=== PATIENT | male | born 1965 | race Caucasian/White ===

== ENCOUNTER 2017-07-16 07:46 | Outpatient (CLI) | payer OTHER ==
[2017-07-16 10:14] LABS: #Eosinphils 0.1 thou/uL (0.0-0.7); #Lymphocytes 1.4 thou/uL (1.20-3.40); #Monocytes 0.8 thou/uL (0.11-0.59); #Neutrophils 4.8 thou/uL (1.40-6.50); %Basophils 0.5 % (0.0-1.0); %Eosinophils 1.3 % (0.0-10.0); %Lymphocytes 19.4 % (21.0-51.0); %Monocytes 11.5 % (0.0-10.0); %Neutrophils 67.2 % (42.0-75.0); Hemoglobin 16.5 g/dL (14.0-18.0); Mean Corpuscular HGB CONC 35.2 g/dL (32.0-36.0); Mean Corpuscular Hemoglobin 32.9 pg (27.0-31.0); Mean Corpuscular Volume 93.5 fl (80.0-94.0); Mean Platelet Volume 8.2 fL (7.4-10.4); Platelet Count 183 thou/uL (130-400); RBC Distribution Width 12.2 % (11.5-14.5); Red Blood Cell (RBC) Count 5.01 mill/uL (4.70-6.10); White Blood Cell (WBC) Count 7.1 thou/uL (4.8-10.8)
--- NOTE | 2017-07-16 10:21 | RAD ---
CHEST TWO VIEWS: History: Pre op. Comparison: FINDINGS: Cardiac silhouette and pulmonary vasculature are unremarkable. Mediastinum is midline. No confluent a irspace consolidation, pneumothorax, or pleural fluid. IMPRESSION: No active cardiopulmonary abnormalities are demonstrated. POS: TPC
[2017-07-16 10:32] LABS: Anion Gap 11 mmol/L (10-20); BUN (Urea Nitrogen) 16 mg/dL (8.4-25.7); Calc. Creatinine Clearance 0 mL/min (70-130); Calcium 9.3 mg/dL (7.8-10.44); Carbon Dioxide 27 mmol/L (22-29); Chloride 103 mmol/L (98-107); Estimated GFR-MDRD Greater than 90; Glucose 93 mg/dL (70-105); Sodium 137 mmol/L (136-145)
[2017-07-16 10:38] LABS: PTT 31.8 SEC (22.9-36.1); Prothrombin Time 13.2 SEC (12.0-14.7)
[2017-07-16 11:11] LABS: Bilirubin Negative (Negative); Blood, Urine Negative (Negative); Clarity CLEAR (Clear); Glucose, Urine (Dipstick) Negative (Negative); Leukocyte Negative (Negative); Nitrite Negative (Negative); Protein, Urine (Dipstick) Negative (Neg-Trace)
[2017-07-16 11:16] LABS: Bacteria/HPF None Seen HPF (None Seen); Hyaline Casts/LPF 0-3 HYALINE CAST LPF (0-3 Hyaline); Squamous Epithelial None Seen HPF (0-3); WBC/HPF None Seen HPF (0-3)
--- NOTE | 2017-07-17 20:19 | EKG ---
Test Reason : Blood Pressure : / mmHG Vent. Rate : 049 BPM Atrial Rate : 049 BPM P-R Int : 182 ms QRS Dur : 098 ms QT Int : 460 ms P-R-T Axes : 044 031 039 degrees QTc Int : 415 ms Marked sinus bradycardia Cannot rule out Anterior infarct , age undetermined Abnormal ECG When compared with ECG of 06-NOV-2013 09:01, No significant change was found Confirmed by THAD WILEY (2) on 07/17/2017 8:18:59 PM Referred By: KAREN Confirmed By:THAD WILEY
== END 2017-07-16 07:47 | disposition home or self-care (01) ==
LOC: LABBT 07:46
PROVIDERS: ATTEND Orthopaedic Surgery
DX: Z01.818 Encounter for other preprocedural examination (principal); M16.12 Unilateral primary osteoarthritis, left hip
CPT/HCPCS: 71046; 80048; 81001; 85025; 85610; 85730; 86850; 86900; 86901; 87081; 93005; 93010

== ENCOUNTER 2017-07-16 08:00 | Inpatient (IN) | payer OTHER ==
[2017-07-16 08:23] VITALS: BMI 40.1
[2017-07-23] MEDS ORDERED: Fentanyl 100 MCG/2 ML VIAL ONE (06:19)
[2017-07-23] MEDS ORDERED: Midazolam HCl 2 mg/2 ml Vial ONE (06:19)
[2017-07-23] MEDS ORDERED: HYDROcodone/Acetaminophen 10/325 mg Tablet PO PRN ×4 (06:53→07:07)
[2017-07-23] MEDS ORDERED: traMADol HCl 50 MG TAB PO PRN ×3 (06:53→07:15)
[2017-07-23] MEDS ORDERED: Zolpidem Tartrate 5 MG TAB PO PRN ×2 (06:53→07:15)
[2017-07-23] MEDS ORDERED: Acetaminophen 325 MG TAB PO PRN (06:53)
[2017-07-23] MEDS ORDERED: Promethazine HCl 25 MG/ML VIAL IM PRN ×2 (06:53→07:15)
[2017-07-23] MEDS ORDERED: diphenhydrAMINE 25 MG CAP PO PRN ×2 (06:53→07:15)
[2017-07-23] MEDS ORDERED: Fentanyl 100 MCG/2 ML VIAL SLOW IVP PRN ×2 (06:53)
[2017-07-23] MEDS ORDERED: Ondansetron HCl/PF 4 MG/2 ML Vial IVP PRN ×2 (06:53→07:15)
[2017-07-23] MEDS ORDERED: Phenylephrine HCL 10 MG/ML VIAL ONE (06:55)
[2017-07-23] MEDS ORDERED: Bupivacaine 0.25% HCL 30 ML VIAL ONE (06:55)
[2017-07-23] MEDS ORDERED: Lidocaine 2% Jelly 5 ML TUBE ONE (06:58)
[2017-07-23] MEDS ORDERED: Tranexamic Acid 1,000 MG in Sodium Chloride 0.9% 100 ML IVPB SCH (07:00)
[2017-07-23] MEDS ORDERED: diphenhydrAMINE 50 MG/ML VIAL IVP PRN (07:15)
[2017-07-23] MEDS ORDERED: Bupivacaine 0.25% 10 ML VIAL EPIDURAL PRN (07:15)
[2017-07-23] MEDS ORDERED: Naloxone HCl 0.4 mg/ml Vial IVP PRN (07:15)
[2017-07-23] MEDS ORDERED: fentaNYL Citrate/PF 1,250 MCG, Bupivacaine 25 ML in Sodium Chloride 0.9% 250 ML 200 ML EPIDURAL SCH (07:15)
[2017-07-23] MEDS ORDERED: Promethazine HCl 25 MG SUPP PR PRN (07:15)
[2017-07-23] MEDS ORDERED: diphenhydrAMINE 50 MG/ML VIAL IM PRN (07:15)
[2017-07-23] MEDS ORDERED: Naloxone HCl 0.4 mg/ml Vial IV PRN (07:15)
[2017-07-23] MEDS ORDERED: Hydrocerin (Eucerin) Cream 120 gm Jar TOP PRN (07:15)
[2017-07-23] MEDS ORDERED: Succinylcholine Chloride 20 MG/ML 10 ml SYRINGE FS ONE (07:33)
[2017-07-23] MEDS ORDERED: PROPOFOL 200 MG/20 ML VIAL ONE (07:33)
[2017-07-23] MEDS ORDERED: Ondansetron HCl/PF 4 MG/2 ML Vial ONE ×2 (07:33→07:37)
[2017-07-23] MEDS ORDERED: ePHEDrine/0.9% NaCl/PF SYRINGE 50 mg/10 ml ONE (07:33)
[2017-07-23] MEDS ORDERED: Glycopyrrolate 0.2 MG/ML 5 ML SYRINGE ONE (07:33)
[2017-07-23] MEDS ORDERED: Dexamethasone 20 MG/5 ML VIAL ONE (07:33)
[2017-07-23] MEDS ORDERED: Non-Formulary Item 1 EACH (Multivit-Min/Fa/Lycopen/Lutein [Centrum Silver Tablet] 1 TAB) PO SCH (09:00)
[2017-07-23] MEDS: Sodium Chloride 0.9% 1,000 ML IV SCH ×2 (10:36→17:43)
[2017-07-23] MEDS: Ferrous Gluconate 324 MG TAB PO SCH ×2 (10:37→20:58)
[2017-07-23] MEDS: Senokot S 8.6-50 MG TAB PO SCH ×2 (10:38→20:58)
[2017-07-23] MEDS: Multivitamin W/ Minerals 1 TAB PO SCH (10:38)
--- NOTE | 2017-07-23 10:59 | RAD ---
3 VIEWS LEFT HIP: Date: 07/23/17 COMPARISON: None. HISTORY: 52-year-old male status post total hip arthroplasty. FINDINGS: There is a left total hip arthroplasty in place. There is anterior soft tissue swelling and subcutane ous gas consistent with recent surgery. The acetabular and the femoral component appear well seated w ith no evidence for hardware failure, acute fracture, or dislocation. IMPRESSION: Status post total hip arthroplasty on the left. POS: ESTELA
[2017-07-23] MEDS: Cyanocobalamin (Vitamin B-12) 1,000 MCG TAB PO SCH (12:13)
[2017-07-23] MEDS: Ketorolac Tromethamine 30 MG/ML VIAL IVP SCH ×2 (12:13→18:32)
[2017-07-23] MEDS: Hydrochlorothiazide 25 MG TAB PO SCH (12:13)
--- NOTE | 2017-07-23 12:54 | OP ---
PREOPERATIVE DIAGNOSIS: Degenerative joint disease, left hip. POSTOPERATIVE DIAGNOSIS: Degenerative joint disease, left hip. TITLE OF PROCEDURE: Left total hip arthroplasty using an Accolade 0.5 stem, Tritanium 58 mm cup and ceramic head standard 36 and X3 polyethylene liner. PROCEDURE IN DETAIL: After informed consent was obtained in the preoperative holding area, the patie nt was taken to the operative suite where general anesthesia was induced. The patient was then posit ioned in the lateral decubitus position. The hip was then prepped and draped in usual sterile fashio n. The patient received preoperative antibiotics. Prior to incision, time-out was called and all me mbers of the surgical team agreed upon site, surgeon, and patient. After this, a longitudinal incisi on was made directly over the trochanter, noted by palpation extending 2 fingerbreadths above and bel ow the trochanter. The deeper subcutaneous layer was undermined with Bovie electrocautery. The ilio tibial band was encountered and incised sharply and the plane below this was developed bluntly. [facility] to hold this opened. The lateral aspect of the trochanter and the abduct or muscles were encountered and then reflected anteriorly off the trochanter using Bovie electrocaute ry. Once this was completed, the anterior capsule was then encountered and identified and copious ca psulotomy was carried out, exposing the femoral neck and head. Dislocation maneuver was then performe d and an in situ provisional neck cut was then made using the oscillating saw. Attention was then tu rned to acetabular preparation and sequential reaming was carried out up to the appropriate diameter and a trial was then malleted into place with good firm resistance and no pullout. The permanent juan manuel tabular shell was then malleted squarely into place, as was the appropriate liner. Once completed, t he wound was copiously irrigated and attention was then turned to femoral preparation. Flexion and ex ternal rotation was performed of the exposed thigh and femoral elevators were then placed at the prox imal aspect of the wound. Canal finder was used to establish the length of the canal and sequential reaming was carried out, followed by broaching. Once the appropriate stability was established with the trial broaches with both flexion, extension and rotational stability, we did trial with neutral a nd 2 mm offset incremental necks. Once the appropriate size was decided upon, with good stability no ravi with flexion, extension, internal and external rotation and shuck being negative, we removed the femoral trial broach and malletted into place the permanent prosthesis with good firm fit, which was also stable to rotation. Again, the hip felt very stable to flexion, extension, internal and externa l rotation. Leg lengths appeared near anatomic clinically and we were quite happy with prosthesis pl acement. Copious irrigation was then carried out through the entirety of the wound. Primary closure of the abductors was accomplished with interrupted #2 Vicryl adjvpr-gl-laewm stitches and the IT ban d was then closed with interrupted #2 Vicryl, oversewn with a #2 running barbed Quill stitch. Subcut aneous fascia was closed with running barbed Quill stitch and a subcuticular Monocryl barbed Quill st itch was used for skin closure and augmented with skin cement. A sterile dressing was applied. The p rocedure was terminated without any complication. All counts were correct. The patient was awakened in the operative suite and taken to the recovery room in stable condition.
[2017-07-23] MEDS ORDERED: CEFAZOLIN/Water 2 GM/20 ML SYRINGE SLOW IVP SCH (14:00)
[2017-07-23] MEDS ORDERED: Ketorolac Tromethamine 30 MG/ML VIAL IVP SCH (14:00)
[2017-07-23] MEDS: CEFAZOLIN/Water 2 GM/20 ML SYRINGE SLOW IVP SCH (20:28)
[2017-07-24] MEDS: Ketorolac Tromethamine 30 MG/ML VIAL IVP SCH ×3 (00:06→11:30)
[2017-07-24] MEDS: CEFAZOLIN/Water 2 GM/20 ML SYRINGE SLOW IVP SCH (00:08)
[2017-07-24] MEDS: Sodium Chloride 0.9% 1,000 ML IV SCH (02:36)
[2017-07-24 06:05] LABS: Hemoglobin 13.4 g/dL (14.0-18.0); Mean Corpuscular HGB CONC 34.4 g/dL (32.0-36.0); Mean Corpuscular Hemoglobin 32.5 pg (27.0-31.0); Mean Corpuscular Volume 94.4 fl (80.0-94.0); Mean Platelet Volume 8.4 fL (7.4-10.4); Platelet Count 176 thou/uL (130-400); RBC Distribution Width 11.8 % (11.5-14.5); Red Blood Cell (RBC) Count 4.12 mill/uL (4.70-6.10); White Blood Cell (WBC) Count 14.6 thou/uL (4.8-10.8)
[2017-07-24] MEDS: Multivitamin W/ Minerals 1 TAB PO SCH (09:06)
[2017-07-24] MEDS: Senokot S 8.6-50 MG TAB PO SCH (09:06)
[2017-07-24] MEDS: Ferrous Gluconate 324 MG TAB PO SCH (09:06)
[2017-07-24] MEDS: Cyanocobalamin (Vitamin B-12) 1,000 MCG TAB PO SCH (09:06)
[2017-07-24] MEDS: Hydrochlorothiazide 25 MG TAB PO SCH (09:07)
--- NOTE | 2017-07-24 10:39 | PDOC.PN ---
- Subjective Encounter Start Date: 07/24/17 Encounter Start Time: 09:10 no events overnight, denies F/C, no n/V/D/c, no CP, no SOB. hasnt walked yet, epidural still in but being weaned off. about to get up with PT. All systems reviewed and neg x as per HPI - Objective MAR Reviewed: Yes Vital Signs & Weight: Vital Signs (12 hours) Temp Pulse Resp BP Pulse Ox 07/24/17 07:15 98.1 F 71 18 119/68 97 07/24/17 04:00 98 F 66 16 107/66 95 07/24/17 00:00 98.3 F 56 L 16 122/68 94 L Weight Weight 330 lb I&O: 07/23/17 07/24/17 07/25/17 06:59 06:59 06:59 Intake Total 2422 2256 Output Total 3400 900 Balance -978 1356 Result Diagrams: 07/24/17 04:48 Phys Exam - Physical Examination Constitutional: NAD HEENT: PERRLA, moist MMs, sclera anicteric, oral pharynx no lesions Neck: no nodes, no JVD, supple, full ROM Respiratory: no wheezing, no rales, no rhonchi, clear to auscultation bilateral Cardiovascular: RRR, no significant murmur, no rub Gastrointestinal: soft, non-tender, no distention, positive bowel sounds Musculoskeletal: pulses present, edema present Neurological: non-focal, normal sensation, moves all 4 limbs Lymphatic: no nodes Psychiatric: normal affect, A&O x 3 Skin: no rash, normal turgor, cap refill <2 seconds Dx/Plan (1) Essential (primary) hypertension Code(s): I10 - ESSENTIAL (PRIMARY) HYPERTENSION Status: Chronic (2) Obesity Code(s): E66.9 - OBESITY, UNSPECIFIED Status: Chronic Qualifiers: Obesity type: due to excess calories Obesity classification: adult class 3 (BMI >= 40) Serious obesity comorbidity presence: without serious comorbidity Body mass index: BMI 40.0-44.9 Qualified Code(s): E66.01 - Morbid (severe) obesity due to excess calories; Z68.41 - Body mass index (BMI) 40.0-44.9, adult ; Z68.41 - Body mass index (BMI) 40.0-44.9, adult; Z68.41 - Body mass index (BMI ) 40.0-44.9, adult; Z68.41 - Body mass index (BMI) 40.0-44.9, adult Comment: s/p lap gastric sleeve and 130# weight loss in past (3) DJD (degenerative joint disease) Code(s): M19.90 - UNSPECIFIED OSTEOARTHRITIS, UNSPECIFIED SITE Status: Chronic Qualifiers: Osteoarthritis location: multiple joints Osteoarthritis type: primary Qualified Code(s): M15.0 - Primary generalized (osteo)arthritis (4) History of bariatric surgery Code(s): Z98.84 - BARIATRIC SURGERY STATUS Status: Chronic (5) History of total left hip arthroplasty Code(s): Z96.642 - PRESENCE OF LEFT ARTIFICIAL HIP JOINT Status: Acute Comment: POD 1, per ortho - Plan cont current plan of care, PT/OT, social studies teacher, out of bed/ambulate * .
--- NOTE | 2017-07-24 10:55 | CON ---
DATE OF CONSULTATION: 07/23/2017 TIME OF SERVICE: 14:10 INITIAL INPATIENT CONSULT NOTE REQUESTING PHYSICIAN: Dr. Miguelito Heller. REASON FOR CONSULTATION: Medical management status post left hip replacement. HISTORY OF PRESENT ILLNESS: Mr. Lee is a pleasant 52-year-old gentleman with history of obesity, status post laparoscopic gastric sleeve surgery, ongoing tobacco abuse, hypertension, and degenerati ve joint disease who presents to the hospital today as a transfer to the floor postop day 0 from left total hip arthroplasty. No noted intraoperative complications. We have been consulted postoperativ e for medical management. The patient does use snuff daily about 1 can per day. This is ongoing and has no intention of quitti ng. Does have a history of severe obesity and had a laparoscopic gastric sleeve procedure by Dr. Byron christianson. Since that time, he has lost about 130 pounds. This enabled him to have the surgery. He has a history of hypertension on medications and says fairly well controlled and degenerative joint disease as above. Postop, he is doing well. Once we get the catheter out, he is ready to get up and walk. Still has a n epidural in place. No fevers or chills, no nausea, vomiting, no diarrhea or constipation. No coug h, sputum production, chest pain or shortness of breath. PAST MEDICAL HISTORY: 1. Ongoing tobacco abuse. 2. Severe obesity. 3. Hypertension. 4. Degenerative joint disease. PAST SURGICAL HISTORY: Includes, 1. Laparoscopic gastric sleeve procedure by Dr. Avendaño. 2. Umbilical hernia repair. 3. Right knee arthroscopy x3. 4. Right rotator cuff repair. 5. Right foot surgery remotely. 6. Tonsillectomy remotely. HOME MEDICATIONS: 1. Aspirin 81 mg daily with vitamin D3 6000 units p.o. q.a.m. 2. Vitamin B12 1000 mcg q.a.m. 3. HCTZ 25 mg p.o. daily. 4. Toprol-XL 50 mg p.o. q.a.m. 5. Multivitamin daily. 6. Tramadol as needed. ALLERGIES: NKDA. FAMILY HISTORY: Significant for diabetes and hypertension. Negative for premature coronary artery d isease. SOCIAL HISTORY: Significant for snuff usage. Uses about 1 can per day. No history of IV drug use. He is , monogamous. His accompanies him. REVIEW OF SYSTEMS: All systems reviewed and negative except as stated as per HPI. PHYSICAL EXAMINATION: VITAL SIGNS: Temperature 97.8, pulse 69, blood pressure 135/74, respiratory rate 16, satting 98% on room air. GENERAL: He is awake, he is alert, he is oriented x3, well-developed, well-nourished, obese white medardo kenny, appears to be in no distress. HEENT: Normocephalic, atraumatic. His pupils are equal, round, reactive to light bilaterally. Muco us membranes moist. There are no visible lesions. No thrush. NECK: Supple. No lymphadenopathy, no JVD, no thyromegaly. No carotid upstroke. I do not appreciat e bruits. LUNGS: Clear. No wheezes, no rales or rhonchi. Good air movement. Symmetrical chest excursion. CARDIOVASCULAR: Normal S1 and S2. No S3 or S4. No audible murmurs. ABDOMEN: Soft. It is nontender and nondistended. No masses, no organomegaly. He has got no reboun d, rigidity or guarding. EXTREMITIES: No signs of clubbing and trace edema to the right ankle level. His left hip dressing i s clean, dry, and intact. There is no strike through. SKIN: Otherwise warm, moist and well well-perfused. No other rashes or lesions. MUSCULOSKELETAL: Normal to inspection. Other than the left hip, other joints appear intact. There is no inflammation. No palpable effusions. NEUROLOGIC: Cranial nerves II-XII are grossly intact. He has no focal neurologic deficits, 5/5 stre ngth, and normal speech pattern. PREOPERATIVE LABORATORY DATA: Sodium 137, potassium 4.0, chloride 103, bicarb 27, BUN 10, creatinine 0.75, glucose 93, and calcium 9.3. Liver function completely normal limits. CBC showed a white cou nt of 7.1, hemoglobin is 16.5, hematocrit of 46.9, platelet count was 183,000. The urinalysis was ne gative and INR was 1.0. These were drawn on 07/16/2017. ASSESSMENT AND PLAN: 1. Hypertension. 2. Severe obesity, status post laparoscopic gastric sleeve procedure. 3. Ongoing tobacco abuse. 4. Degenerative joint disease. 5. Status post left total hip arthroplasty. His home medications have been resumed. We will continue to monitor his blood pressure while here. He does not have history of diabetes or lung disease. Patient anticipates going home tomorrow. We w ill continue to follow with you while he is in the hospital. Thank you for this consultation.
[2017-07-24 13:40] VITALS: BP 136/78; TEMP 97.6
== END 2017-07-24 16:45 | disposition home or self-care (01) | DRG 470 ==
LOC: SURG A 07-23 05:44 → SJJU 07-23 09:57
PROVIDERS: ADMIT Orthopaedic Surgery; ATTEND Orthopaedic Surgery
PROC: 0SRB04Z Replacement of Left Hip Joint with Ceramic on Polyethylene Synthetic Substitute, Open Approach (ICD-10-PCS; principal; 2017-07-23)
DX: M16.12 Unilateral primary osteoarthritis, left hip (principal); Z68.41 Body mass index [BMI] 40.0-44.9, adult; E66.9 Obesity, unspecified; I10 Essential (primary) hypertension; F17.220 Nicotine dependence, chewing tobacco, uncomplicated; Z98.84 Bariatric surgery status; F17.210 Nicotine dependence, cigarettes, uncomplicated; Z79.82 Long term (current) use of aspirin
CPT/HCPCS: 36415; 85027; 96374; G8978-GP-CK; G8979-GP-CJ; G8987-GO-CJ; G8988-GO-CJ; G8989-GO-CJ; J1100; J1885; J2250; J2370; J2405; J2704; J3010; J3370; J3490; J7050; S0020

== ENCOUNTER 2018-01-22 11:47 | Inpatient (IN) | payer OTHER ==
[2018-01-22 12:46] LABS: #Monocytes 1.1 thou/uL (0.11-0.59); #Neutrophils 6.7 thou/uL (1.40-6.50); %Basophils 0.5 % (0.0-1.0); %Eosinophils 0.5 % (0.0-10.0); %Monocytes 12.2 % (0.0-10.0); %Neutrophils 75.9 % (42.0-75.0); Hemoglobin 16.8 g/dL (14.0-18.0); Mean Corpuscular HGB CONC 33.2 g/dL (32.0-36.0); Mean Corpuscular Hemoglobin 31.3 pg (27.0-31.0); Mean Corpuscular Volume 94.3 fL (78.0-98.0); Mean Platelet Volume 8.6 fL (7.4-10.4); Platelet Count 198 thou/uL (130-400); RBC Distribution Width 12.9 % (11.5-14.5); Red Blood Cell (RBC) Count 5.38 mill/uL (4.70-6.10); White Blood Cell (WBC) Count 8.8 thou/uL (4.8-10.8)
[2018-01-22 13:16] LABS: CKMB 3.7 ng/mL (0-6.6); Troponin I Less than 0.010 ng/mL (< 0.028)
[2018-01-22] MEDS ORDERED: Morphine 2 MG/ML SYRINGE ONE (13:16)
[2018-01-22 13:21] LABS: ALT (SGPT) 235 U/L (8-55); AST (SGOT) 257 U/L (5-34); Albumin 4.4 g/dL (3.5-5.0); Alkaline Phosphatase 101 U/L (40-150); Anion Gap 13 mmol/L (10-20); BUN (Urea Nitrogen) 15 mg/dL (8.4-25.7); Bilirubin, Total 4.6 mg/dL (0.2-1.2); CK (CPK) 209 U/L (30-200); Calc. Creatinine Clearance 0 mL/min (70-130); Calcium 9.4 mg/dL (7.8-10.44); Carbon Dioxide 27 mmol/L (22-29); Chloride 102 mmol/L (98-107); Estimated GFR-MDRD Greater than 90; Globulin 3.2 g/dL (2.4-3.5); Glucose 91 mg/dL (70-105); Potassium 3.8 mmol/L (3.5-5.1); Protein, Total 7.6 g/dL (6.0-8.3); Sodium 138 mmol/L (136-145)
--- NOTE | 2018-01-22 13:36 | RAD ---
FRONTAL VIEW CHEST: INDICATIONS: Chest pain. COMPARISON: 07/16/2017 FINDINGS: The cardiomediastinal silhouette is accentuated by the portable technique, grossly stable. There is no lobar consolidation or effusion. No free air. No discrete pneumothorax. IMPRESSION: No focal consolidation. POS: JULIANK
[2018-01-22 14:05] LABS: Lipase Greater than 16000 U/L (8-78)
--- NOTE | 2018-01-22 14:20 | ULT ---
GALLBLADDER ULTRASOUND: INDICATIONS: Right upper quadrant pain. FINDINGS: There is limited acoustic penetration of the liver, which decreases sensitivity. The imaged portion of the liver revealed increased echogenicity, that can be seen in the setting of hepatic steatosis. Multiple echogenic foci of the gallbladder, which layer and shadow, are consistent with cholelithiasi s. No discernible gallbladder wall thickening. The imaged common duct is 4 mm in diameter. No asci charan is seen. IMPRESSION: 1. Echogenic liver with decreased acoustic penetration, which limits sensitivity. Correlate with li chiara function enzymes, as necessary, to evaluate for hepatic steatosis or hepatocellular disease. 2. Cholelithiasis. No discrete evidence of acute cholecystitis. POS: PAULO
[2018-01-22] MEDS ORDERED: Morphine 4 MG/ML VIAL SLOW IVP PRN ×2 (15:40→15:56)
[2018-01-22] MEDS ORDERED: Morphine 2 MG/ML SYRINGE SLOW IVP PRN (15:56)
[2018-01-22] MEDS ORDERED: Ondansetron PF 4 MG/2 ML Vial IVP PRN (15:56)
[2018-01-22] MEDS ORDERED: hydrALAZINE 20 MG/ML VIAL SLOW IVP PRN (15:56)
[2018-01-22 16:11] VITALS: BMI 37.9
[2018-01-22] MEDS: Sodium Chloride 0.9% 1,000 ML IV SCH ×4 (17:26→22:41)
[2018-01-22] MEDS: Nicotine 14 MG PATCH TD SCH ×2 (17:38→21:19)
--- NOTE | 2018-01-22 19:41 | HP ---
PRIMARY CARE PHYSICIAN: Dr. Cristiano Butts. CHIEF COMPLAINT: Chest and epigastric pain. HISTORY OF PRESENT ILLNESS: Mr. Lee is a very pleasant 52-year-old gentleman that has a history of hypertension. He was in his usual state of health until last night. He and his had gone to the local [employer] and had eaten at [employer] and he felt fine immediately afterwards, but by the time he got home, he began having a knot-like sensation in his epigastrium. He also says that his r ight shoulder felt numb. He thought he might be having a heart attack. He says that he tried sleepi ng but was very uncomfortable and expressed that he tried lying on the stomach. There was a lot of p ressure there, It seemed to get a little bit better, but he then had some chills. The pain then star ravi radiating upwards into his chest. He did feel a bit nauseated. He also felt constipated, as if he have a bowel movement, it would get better. The pain also was moving around into his back. He sa id it was getting worse and worse and when he woke up in the morning, It was still there and it was b ecoming more severe. For this reason, he came to the ER for evaluation. He actually gone to Urgent Care and they did an abdominal ultrasound and discovered that he had stones in the gallbladder as wel l as an elevated lipase and was sent over to our facility for further evaluation. The patient says t hat he has never had anything like this happen to him before. He has had some problems with some mil d nausea after eating only on one occasion in the past, but it only lasted a few hours and it went aw ay. He denies any fevers, no hematemesis, no melena, or blood in the stools. He does admit to drink ing heavily, as this was close to the anniversary of his son's , but he says he stopped drinking about a week ago. Prior to that, he was drinking about a bottle of Manuel Beam a day. He does not hav e any feeling of shakiness or anxiousness now. He did have that few days ago. REVIEW OF SYSTEMS: All systems were reviewed and are negative except for that mentioned in the histo ry of present illness. PAST MEDICAL HISTORY: Significant for hypertension, obesity, degenerative joint disease, and tobacco abuse. PAST SURGICAL HISTORY: He had left total hip replacement; a laparoscopic gastric sleeve; three arthr oscopic knee surgeries, two on one knee and one on the other; right rotator cuff repair; right foot s urgery; and tonsillectomy. ALLERGIES: No known drug allergies. SOCIAL HISTORY: He is . He works in the business. He uses a can of snuff daily. He w as a heavy drinker but quit about 8 days ago. He would like to be a FULL CODE. FAMILY HISTORY: Significant for diabetes mellitus in his aunt and his mother and grandmother had hyp ertension. CURRENT MEDICATIONS: Include metoprolol 25 mg once daily, hydrochlorothiazide 12.5 mg daily, ibuprof en 200 mg 2 tabs once a day. PHYSICAL EXAMINATION: GENERAL: He is alert and oriented. He appears to be in no acute distress. He is well developed and well nourished. VITAL SIGNS: His blood pressure was 155/90, heart rate 62, respiratory rate of 18, temperature is 98 .5. HEENT: Pupils are equal, round, and reactive. Extraocular muscles are intact. His sclerae anicteri c. Throat: There is no erythema, no exudates. NECK: No adenopathy, no bruits. LUNGS: Clear to auscultation. There is no wheezing, no rales, no rhonchi. CARDIOVASCULAR: He has a normal S1, S2. There was no S3 or S4. No murmurs, clicks, no rubs. ABDOMEN: Obese, it is soft. He has got some epigastric to right upper quadrant tenderness . The li chiara span is slightly enlarged. There was no rebound, no guarding. Bowel sounds are present. EXTREMITIES: No edema, no calf tenderness, no joint crepitus or effusions, no warmth. Palpable dors jake pedis pulses. NEUROLOGIC: Muscle strength is 5/5 in both his upper and lower extremities. His cranial nerves are intact. SKIN AND INTEGUMENT: There is no skin changes, no rash. SIGNIFICANT LABORATORY AND X-RAY: His EKG by my reading is sinus bradycardia. The rate was 52. No ST wave changes on his chest x-ray, he has got some mild cardiomegaly, but no evidence of any infiltr ates or effusions also by my reading. Laboratory results, sodium is 138, potassium 3.8, chloride is 102, CO2 is 27, BUN of 15, creatinine 0.86, glucose is 91. Total bilirubin is 4.6, AST is 257, ALT i s 235, lipase is 16,000. Troponin is less than 0.101. The white blood cell count is 8.8, hemoglobin 16.8, hematocrit is 50.7, platelet count is 198. ASSESSMENT AND PLAN: This is a pleasant 52-year-old gentleman who presents with epigastric and abdom inal pain after eating. He has evidence of cholelithiasis also, an elevated lipase. He has gallston e pancreatitis. 1. For the acute pancreatitis due to cholelithiasis, he will be admitted. He will be placed on ignacio l rest, IV fluids, IV antiemetics and analgesics. We will monitor his electrolytes carefully as well as his glucose and we will also consult Gastroenterology, given the elevated total bilirubin, as he could possibly have a common duct stone as well. Surgery may need to be consulted depending on the G I evaluation for possible cholecystectomy. 2. Hypertension. He will be n.p.o. Therefore, we will treat his blood pressure either with IV p.r. n. medications or with transdermal agent such as Catapres or nitroglycerin. 3. Obesity. I discussed this with the patient that he should talk with his primary care physician t o discuss safe weight loss techniques. 4. Tobacco use. The danger of the smokeless tobacco were discussed and the need to abstain from thi s. He says he is going to need to master abstaining from alcohol first and then he plans to tackle t he tobacco use. 5. He will be placed on deep venous thrombosis and gastrointestinal prophylaxis.
[2018-01-22] MEDS: Famotidine/PF 20 mg/2ml Vial SLOW IVP SCH (21:13)
--- NOTE | 2018-01-22 22:57 | CON ---
DATE OF CONSULTATION: 01/22/2018 REASON FOR CONSULTATION: Pancreatitis and possible choledocholithiasis. CONSULTING PHYSICIAN: Geovanny Hernandez M.D. HISTORY OF PRESENT ILLNESS: The patient is a 52-year-old male with past medical history of hypertens ion and obesity, status post gastric sleeve surgery in 2013, presenting with complaints of abdominal pain. He states that he was in his usual state of health until approximately one day ago when he exp erienced acute onset of midepigastric abdominal pain characterized as a nodded/cramping type pain, no nradiating, constant and would reach a severity of 9/10. The pain was worse with bending over, lying down, laughing, and walking, better with sitting at the bedside. This pain was also associated with increased nausea, but no actual emesis as well as increased constipation, having approximately one s mall bowel movement over the last 24-48 hours. With worsening of his pain, it prompted him to seek [facility] development [facility] where they did an abdominal ultrasound and serologies show ing cholelithiasis as well as an elevated lipase of approximately 16,000 concerning for choledocholit hiasis. He was subsequently transferred to [facility] for further evaluation. Currently, he denies any vomiting, fevers, chills, hematemesis, melena, hematochezia, diarrhea, odynophagia or dysphagia. He states that he does take two medications at home, one of which is hydrochlorothiazide and other is metoprolol. He has not made any medication changes within the last 2-3 months; however, he does endorse a heavy drink alcohol or heavy alcohol use, drinking approximately one bottle of Manuel Beam daily, but discontinued this approximately 1 week ago. REVIEW OF SYSTEMS: A 10-category review of systems was obtained with all responses negative except f or the pertinent positives as listed in the HPI. PAST MEDICAL HISTORY: Hypertension, obesity, tobacco abuse. PAST SURGICAL HISTORY: Left total hip replacement, gastric sleeve surgery in 2013. Three arthroscop ic knee surgeries, right foot surgery, and tonsillectomy. OUTPATIENT MEDICATIONS: As per HPI. FAMILY HISTORY: Denies any GI malignancies. ALLERGIES: No known drug allergies. PHYSICAL EXAMINATION: VITAL SIGNS: Temperature 98.5, pulse 55, blood pressure 177/96, respiratory rate 18, satting 99% on room air. GENERAL: The patient was sitting at bedside in no acute distress. Alert and oriented x4. NECK: Supple. No JVD noted. No supraclavicular lymphadenopathy or cervical chain lymphadenopathy n oted. CARDIOVASCULAR: Regular rate and rhythm with no discernible murmurs, gallops or rubs. LUNGS: Clear to auscultation bilaterally with no discernible wheezes or rales. ABDOMEN: Hypoactive bowel sounds, soft, nontender, nondistended. EXTREMITIES: No cyanosis, clubbing or edema. LABORATORY DATA: CBC with a white blood cell count of 8.8, hemoglobin 16.8, hematocrit 50.7, glucose 198. Chemistry with a sodium of 138, potassium 3.8, chloride 102, CO2 27, BUN 15, creatinine 0.86, glucose 91, AST 257, ALT 235, alkaline phosphatase 101, total bilirubin 4.6, albumin 4.4, lipase grea ter than 16,000. IMAGING DATA: Right upper quadrant abdominal ultrasound obtained on 01/22/2018 showed multiple echog enic foci in the gallbladder with a common bile duct measuring 4 mm in size. No ascites and no evide nce of acute cholecystitis. ASSESSMENT AND PLAN: The patient is a 52-year-old male with past medical history of hypertension, ar thritis, and obesity, status post gastric sleeve surgery in 2013, presenting with midepigastric abdom inal pain and labs consistent with acute pancreatitis. Pancreatitis. The patient is presenting with acute onset of midepigastric abdominal pain associated with increased nausea without emesis as well as imaging showing cholelithiasis without evidence of ch oledocholithiasis (common bile duct measures 4 mm). At the current point in time, he does also have significantly elevated transaminases which could be due to inflammation of the pancreas and involveme nt of the liver. Given its proximity; however, with the elevated liver enzymes and the presence of c holelithiasis, choledocholithiasis needs to be ruled out more definitive imaging. In terms of the ca uses for his pancreatitis is chronic alcohol use. It is a more likely explanation for either chronic inflammation of the pancreas despite recent discontinuation of alcohol use; however, he is also taki ng hydrochlorothiazide as an outpatient, which could potentially contribute to the current clinical s ituation. RECOMMENDATIONS: 1. We would continue n.p.o. status for now given acute pancreatitis and monitor clinically during [facility] hospitalization. 2. We would continue IV fluids at 200 mL per hour, but would potentially increase to 250 mL per hour if his BUN is not decreasing. 3. Pain control per primary team. 4. We will obtain an MRCP for further evaluation of possible choledocholithiasis. We will continue to follow. Please call with any questions.
[2018-01-23] MEDS: Sodium Chloride 0.9% 1,000 ML IV SCH ×5 (02:00→20:26)
[2018-01-23 04:26] LABS: #Eosinphils 0.1 thou/uL (0.0-0.7); #Lymphocytes 0.9 thou/uL (1.20-3.40); #Monocytes 0.8 thou/uL (0.11-0.59); #Neutrophils 5.6 thou/uL (1.40-6.50); %Basophils 0.2 % (0.0-1.0); %Eosinophils 1.4 % (0.0-10.0); %Lymphocytes 11.6 % (21.0-51.0); %Monocytes 11.4 % (0.0-10.0); %Neutrophils 75.4 % (42.0-75.0); Hemoglobin 14.6 g/dL (14.0-18.0); Mean Corpuscular HGB CONC 33.1 g/dL (32.0-36.0); Mean Corpuscular Hemoglobin 31.4 pg (27.0-31.0); Mean Corpuscular Volume 94.7 fL (78.0-98.0); Mean Platelet Volume 8.4 fL (7.4-10.4); Platelet Count 172 thou/uL (130-400); RBC Distribution Width 12.9 % (11.5-14.5); Red Blood Cell (RBC) Count 4.67 mill/uL (4.70-6.10); White Blood Cell (WBC) Count 7.4 thou/uL (4.8-10.8)
[2018-01-23 04:49] LABS: ALT (SGPT) 204 U/L (8-55); AST (SGOT) 144 U/L (5-34); Albumin 3.6 g/dL (3.5-5.0); Alkaline Phosphatase 103 U/L (40-150); Anion Gap 12 mmol/L (10-20); BUN (Urea Nitrogen) 14 mg/dL (8.4-25.7); Bilirubin, Direct 1.7 mg/dL (0.1-0.3); Bilirubin, Total 3.1 mg/dL (0.2-1.2); Calc. Creatinine Clearance 249 mL/min (70-130); Calcium 8.9 mg/dL (7.8-10.44); Carbon Dioxide 25 mmol/L (22-29); Cardiac Risk 2.4 (Less than 4.5); Chloride 105 mmol/L (98-107); Cholesterol 156 mg/dl (< 200 Desired); Estimated GFR-MDRD Greater than 90; Glucose 86 mg/dL (70-105); HDL Cholesterol 65 mg/dL (>60 Neg Risk); LDL Cholesterol, Calculated 81 mg/dL; Potassium 3.7 mmol/L (3.5-5.1); Protein, Total 6.1 g/dL (6.0-8.3); Sodium 138 mmol/L (136-145); Triglycerides 52 mg/dL (Less than 150)
[2018-01-23 05:02] LABS: Lipase 2092 U/L (8-78)
[2018-01-23 06:44] LABS: Magnesium 2.4 mg/dL (1.6-2.6); Phosphorus 3.1 mg/dL (2.3-4.7)
[2018-01-23] MEDS ORDERED: Enoxaparin Sodium 40 MG/0.4 ML SYRINGE SC SCH (09:00)
[2018-01-23] MEDS ORDERED: Lorazepam 1 MG TAB PO PRN (09:07)
[2018-01-23] MEDS: Famotidine/PF 20 mg/2ml Vial SLOW IVP SCH (09:28)
[2018-01-23] MEDS ORDERED: Lorazepam 2 MG/ML VIAL SLOW IVP SCH (10:00)
--- NOTE | 2018-01-23 10:35 | PDOC.PN ---
- Subjective Encounter Start Date: 01/23/18 Encounter Start Time: 09:00 Patient seen and examined for Pancreatitis. Abd pain improving. No N/V. No new complaints. No overnight events - Objective Resuscitation Status: Resuscitation Status FULL:Full Resuscitation MAR Reviewed: Yes Vital Signs & Weight: Vital Signs (12 hours) Temp Pulse Resp BP Pulse Ox 01/23/18 07:31 99.4 F 68 16 135/75 97 Weight Weight 319 lb 11.2 oz Result Diagrams: 01/23/18 04:14 01/23/18 04:14 Phys Exam - Physical Examination Constitutional: NAD Respiratory: no wheezing, no rhonchi Cardiovascular: RRR, no rub Gastrointestinal: soft, positive bowel sounds mild gen tenderness, no rebound/guarding Musculoskeletal: no edema Dx/Plan - Plan DVT proph w/SCDs 1. Acute Gallstone pancreatitis 2. HTN 3. Abn LFTs due to #1 4. Obesity BMI 37 5. Tobacco dep/Cholelithiases / Other issues per previous notes PLAN: Await MRCP LFTs and lipase in AM Cont NPO/IVF/Pain control Add ice chips Clear liqd diet later today if MRI negative Review of Systems - Review of Systems Cardiovascular: negative: chest pain, palpitations, orthopnea, paroxysmal nocturnal dyspnea, edema, light headedness, other Gastrointestinal: negative: Nausea, Vomiting, Abdominal Pain, Diarrhea, Constipation, Melena, Hematochezia, Other - Medications/Allergies Allergies/Adverse Reactions: Allergies Allergy/AdvReac Type Severity Reaction Status Date / Time No Known Allergies Allergy Verified 10/31/17 15:06 Medications: Current Medications Famotidine (Pepcid) 20 mg PO BID JOE Hydralazine HCl (Apresoline) 10 mg SLOW IVP Q4H PRN PRN Reason: SBP > 180 and HR < 70 Sodium Chloride (Normal Saline 0.9%) 1,000 mls @ 200 mls/hr IV .Q5H JOE Last Admin: 01/23/18 09:28 Dose: 1,000 mls Lorazepam (Ativan) 0.5 mg SLOW IVP NOW JOE Stop: 01/23/18 12:00 Morphine Sulfate (Morphine) 2 mg SLOW IVP Q4H PRN PRN Reason: Pain Last Admin: 01/22/18 17:37 Dose: 2 mg Morphine Sulfate (Morphine) 4 mg SLOW IVP Q4H PRN PRN Reason: Pain Nicotine (Nicoderm Patch) 14 mg TD Q24HR JOE Last Admin: 01/22/18 21:19 Dose: 14 mg Ondansetron HCl (Zofran) 4 mg IVP Q6H PRN PRN Reason: Nausea/Vomiting
--- NOTE | 2018-01-23 11:13 | MRI ---
MRI ABDOMEN WITHOUT CONTRAST: History: Epigastric pain. Concern for choledocholithiasis. Elevated LFTs. Comparison: Ultrasound prior day. FINDINGS: MRI of the abdomen was performed without intravenous contrast. 3D rendering was performed for MRCP. No pericardial effusion. No pleural effusion. There is extensive cholelithiasis. No intrahepatic or e xtrahepatic biliary dilatation. No choledocholithiasis. Pancreatic duct is not dilated. No calculus is seen within the cystic duct. There is mild pericholecy stic edema. T2 hyperintense focus is present at the anterior intra cortex left kidney likely cyst. Aortic contour is non-aneurysmal. No dilated loops of bowel in the upper abdomen. No significant hepatic steatosis. IMPRESSION: 1. Cholelithiasis with subtle pericholecystic fluid may be sequellae of early cholecystitis. 2. No choledocholithiasis. No intrahepatic or extrahepatic biliary dilatation. 3. Low grade fluid in the anterior pararenal space along the pancreas. Recommend correlation with johnston creatic enzymes for pancreatitis. POS: ESTELA
--- NOTE | 2018-01-23 12:21 | PRG ---
DATE OF SERVICE: 01/23/2018 REASON FOR CONSULTATION: Pancreatitis. SUBJECTIVE: The patient states that he did well overnight with complete resolution of the abdominal pain this morning. Currently, denies any nausea, vomiting, fevers, chills, abdominal pain, GI bleeding, dysphagia, odynophagia, or weight loss. He has not had anything to eat since this hospitalization and the diagnosis of pancreatitis. OBJECTIVE: VITAL SIGNS: Temperature 99.4, pulse 68, blood pressure 135/75, respiratory rate 16, satting 97% on room air. GENERAL: The patient is lying in bed in no acute distress. HEART: Regular rate and rhythm. PULMONARY: Clear to auscultation bilaterally. ABDOMEN: Normoactive bowel sounds, soft, nontender, nondistended. EXTREMITIES: No cyanosis, clubbing, or edema. LABORATORY DATA: CBC with a white blood cell count of 7.4, hemoglobin 14.6, hematocrit 44.2, glucose 172. Chemistry with a sodium of 138, potassium 3.7, chloride 105, CO2 of 25, BUN 14, creatinine 0.72, glucose 86, AST 144, ALT 204, alkaline phosphatase 103, total bilirubin 3.1. IMAGING DATA: MRCP obtained on 01/23/2018 showed extensive cholelithiasis without intrahepatic or extrahepatic biliary dilatation. There was no evidence of choledocholithiasis; however, there was also subtle pericholecystic fluid, which may be the sequelae of early cholecystitis. ASSESSMENT AND PLAN: The patient is a 52-year-old male with past medical history of hypertension, arthritis, and obesity, status post gastric sleeve surgery in 2013, presenting with acute pancreatitis. Pancreatitis. The patient presented with acute onset of midepigastric abdominal pain associated with increased nausea without emesis. He had a right upper quadrant ultrasound showing cholelithiasis without evidence of choledocholithiasis; however, with the elevated transaminases and an elevated total bilirubin, an MRCP was performed to confirm lack of choledocholithiasis, which was then shown today. However, he does raise a question of possible cholecystitis as well. At the current point in time, he does have pancreatitis as evidenced on serologies and imaging, which may have been due to gallstone pancreatitis, but there is no evidence of retained stone on MRCP and he may have passed it. His labs are currently down trending with more conservative management including IV fluids and n.p.o. status and complete resolution of his abdominal pain today. With the extensive cholelithiasis and possible past choledocholithiasis and gallstone pancreatitis resulting, he may need General Surgery evaluation for cholecystectomy during this admission. RECOMMENDATIONS: 1. We would continue IV fluids, but advance the patient's diet as tolerated to clear liquids today. 2. Pain control per primary team. 3. We would consult General Surgery Service for evaluation of cholecystitis/ cholelithiasis and resultant possible gallstone pancreatitis. We will continue to follow. Please call with any questions. MANUEL
[2018-01-23] MEDS: Nicotine 14 MG PATCH TD SCH ×2 (17:33→18:03)
[2018-01-23] MEDS: Famotidine 20 MG TAB PO SCH ×2 (20:14→20:21)
[2018-01-24 04:47] LABS: #Basophils 0.1 thou/uL (0.0-0.2); #Eosinphils 0.1 thou/uL (0.0-0.7); #Lymphocytes 1.1 thou/uL (1.20-3.40); #Neutrophils 5.1 thou/uL (1.40-6.50); %Basophils 0.7 % (0.0-1.0); %Eosinophils 1.6 % (0.0-10.0); %Lymphocytes 14.4 % (21.0-51.0); %Monocytes 14.1 % (0.0-10.0); %Neutrophils 69.2 % (42.0-75.0); Mean Corpuscular HGB CONC 33.2 g/dL (32.0-36.0); Mean Corpuscular Hemoglobin 31.3 pg (27.0-31.0); Mean Corpuscular Volume 94.3 fL (78.0-98.0); Mean Platelet Volume 9.2 fL (7.4-10.4); Platelet Count 173 thou/uL (130-400); RBC Distribution Width 12.9 % (11.5-14.5); Red Blood Cell (RBC) Count 4.47 mill/uL (4.70-6.10); White Blood Cell (WBC) Count 7.3 thou/uL (4.8-10.8)
[2018-01-24 04:58] LABS: ALT (SGPT) 143 U/L (8-55); AST (SGOT) 77 U/L (5-34); Albumin 3.5 g/dL (3.5-5.0); Alkaline Phosphatase 99 U/L (40-150); Anion Gap 12 mmol/L (10-20); BUN (Urea Nitrogen) 9 mg/dL (8.4-25.7); Bilirubin, Total 1.7 mg/dL (0.2-1.2); Calc. Creatinine Clearance 264 mL/min (70-130); Calcium 8.6 mg/dL (7.8-10.44); Carbon Dioxide 24 mmol/L (22-29); Chloride 107 mmol/L (98-107); Estimated GFR-MDRD Greater than 90; Globulin 2.6 g/dL (2.4-3.5); Glucose 81 mg/dL (70-105); Lipase 468 U/L (8-78); Phosphorus 2.9 mg/dL (2.3-4.7); Potassium 3.7 mmol/L (3.5-5.1); Protein, Total 6.1 g/dL (6.0-8.3); Sodium 139 mmol/L (136-145)
[2018-01-24] MEDS ORDERED: Bupivacaine/Epinephrine 0.25% 30 ML VIAL ONE (06:36)
[2018-01-24] MEDS ORDERED: Iothalamate Meglumine 60% 50 ML VIAL FS ONE (06:36)
[2018-01-24] MEDS ORDERED: Fentanyl 100 MCG/2 ML VIAL ONE (06:48)
[2018-01-24 06:49] VITALS: BP 136/74; TEMP 98.3
--- NOTE | 2018-01-24 07:23 | CON ---
DATE OF CONSULTATION: 01/24/2018 CHIEF COMPLAINT: Pancreatitis. HISTORY OF PRESENT ILLNESS: This is a 52-year-old male with a history of heavy drinking, who quit 8 days ago who presents after being admitted for pancreatitis. The pancreatitis, improved rapidly. He now has no pain. He is tolerating a diet. Denies previous history of known gallstones, jaundice, o r pancreatitis. His ultrasound does show gallstones. Liver tests are persistently elevated, althoug h trending down. Ultrasound shows cholelithiasis. PAST MEDICAL HISTORY: Includes hypertension, obesity, degenerative joint disease. PAST SURGICAL HISTORY: Left total hip, gastric sleeve by Dr. Avendaño, right shoulder, right foot. ALLERGIES: No known drug allergies. SOCIAL HISTORY: , dips snuff, former, like before 8 days ago, heavy drinker. MEDICINES: Include metoprolol, hydrochlorothiazide, ibuprofen. REVIEW OF SYSTEMS: Ten system review of systems otherwise negative unless described above. PHYSICAL EXAMINATION: VITAL SIGNS: Blood pressure is 136/74, pulse 62, respirations 16. He is afebrile. HEENT: Sclerae are anicteric. Oropharynx clear. NECK: No lymphadenopathy. CHEST: Clear. HEART: Regular rate and rhythm. ABDOMEN: Soft, nontender, nondistended. Well healed laparoscopic incisions. LABORATORY DATA AND X-RAY FINDINGS: Total bilirubin 1.7. AST and ALT are 77 and 143. Lipase down t o 468, creatinine 0.68, hemoglobin 14. ASSESSMENT: Possible gallstone pancreatitis. He also has alcohol history. Anybody with history of pancreatitis and gallstones needs an elective laparoscopic cholecystectomy. I am unsure whether this current episode of pancreatitis was alcohol or gallstone related; however, plan laparoscopic cholecy stectomy this hospitalization to prevent future episodes of gallstone pancreatitis. Risks, benefits, and alternatives of surgery were discussed. He gives consent. We will do this today.
[2018-01-24] MEDS ORDERED: Famotidine/PF 20 mg/2ml Vial ONE (07:56)
[2018-01-24] MEDS ORDERED: Ketorolac Tromethamine 30 MG/ML VIAL ONE ×2 (07:56→13:17)
[2018-01-24] MEDS ORDERED: Midazolam HCl 2 mg/2 ml Vial ONE (07:57)
[2018-01-24] MEDS ORDERED: CEFAZOLIN 2 GM/50 ML BAG ONE (07:58)
[2018-01-24] MEDS ORDERED: hydrALAZINE 20 MG/ML VIAL ONE ×2 (08:40→09:15)
[2018-01-24] MEDS ORDERED: Promethazine HCl 25 MG/ML VIAL IM PRN (08:44)
[2018-01-24] MEDS ORDERED: HYDROmorphone 2 MG/ML VIAL SLOW IVP PRN (08:44)
[2018-01-24] MEDS ORDERED: Promethazine HCl 25 MG/ML VIAL SLOW IVP PRN (08:44)
[2018-01-24] MEDS ORDERED: Meperidine HCl/PF 25 MG/ML VIAL SLOW IVP PRN (08:44)
[2018-01-24] MEDS ORDERED: SUGAMMADEX SODIUM 500 MG/5 ML VIAL ONE (09:07)
[2018-01-24] MEDS ORDERED: HYDROcodone/Acetaminophen 7.5/325 mg Tablet PO PRN (10:04)
--- NOTE | 2018-01-24 10:12 | RAD ---
OPERATIVE CHOLANGIOGRAM 2 VIEWS: HISTORY: Intraoperative films. FINDINGS: These are 2 films which showed a nondilated common bile duct. No filling defects are seen and there is emptying into the duodenum. Some narrowing in the distal common duct region is probably just on t he basis of peristalsis. IMPRESSION: Unremarkable operative cholangiogram. POS: ESTELA
[2018-01-24] MEDS: Famotidine 20 MG TAB PO SCH (10:18)
--- NOTE | 2018-01-24 11:35 | OP ---
DATE OF PROCEDURE: 01/24/2018 PREOPERATIVE DIAGNOSIS: Gallstone pancreatitis. POSTOPERATIVE DIAGNOSIS: Gallstone pancreatitis. PROCEDURE: Laparoscopic cholecystectomy with intraoperative cholangiogram. SURGEON: Sha Mckeon M.D. ANESTHESIA: General. ESTIMATED BLOOD LOSS: Minimal. COMPLICATIONS: None. SPECIMEN: Gallbladder. FINDINGS: Normal cholangiogram. PROCEDURE IN DETAIL: The patient was taken to the operating room and placed supine on the table. Af ter general anesthetic was obtained, the abdomen was shaved, prepped, and draped in a sterile fashion . Curved incision is made below the umbilicus and cautery dissected down to and score the fascia. A bdominal cavity was entered bluntly using a Lori clamp. Holding stitch of PDS was placed on each si de of the fascia. Barrera trocar was placed. High-flow pneumoperitoneum was obtained. Upper midline 5 mm port as well as 2 right upper quadrant 5-mm port were placed under direct camera visualization. The gallbladder was retracted from the gallbladder fossa. The peritoneum is opened anteriorly and posteriorly. The critical view triangle was seen showing only the cystic duct and cystic artery bran pierre from medial to lateral. There were no other branching structures. A clip was placed high on t he cystic duct. A small ductotomy was made just proximal to that. A cholangiocatheter was brought i n through a separate stab incision, placed in the cystic duct and a cholangiogram was performed which shows good contrast flow into the duodenum, right and left hepatic duct system without obstruction. Cholangiocatheter was removed and 2 clips were placed proximally on the cystic duct, it is cut using laparoscopic scissors. Cystic artery was taken using two clips proximally and one clip distally, an d cut using laparoscopic scissors. Cautery was used to dissect the gallbladder out of the gallbladde r fossa. Gallbladder was placed in an Endocatch bag and brought out through the Ricardo. All port si charan were infiltrated using local anesthetic. All ports are removed under direct visualization withou t bleeding. Pneumoperitoneum was let down. PDS was used to close the fascial defect below the umbil icus. All incisions are irrigated and closed using 4-0 Monocryl and Dermabond. The patient was en r oute to recovery in stable condition. All instrument counts, needle counts, and lap counts were barak ect.
[2018-01-24] MEDS ORDERED: Dexamethasone 20 MG/5 ML VIAL ONE (13:17)
[2018-01-24] MEDS ORDERED: Metoprolol Tartrate 5 MG/5 ML VIAL ONE (13:17)
[2018-01-24] MEDS ORDERED: Glycopyrrolate 0.2 MG/ML 5 ML SYRINGE ONE (13:17)
[2018-01-24] MEDS ORDERED: PROPOFOL 200 MG/20 ML VIAL ONE (13:17)
[2018-01-24] MEDS ORDERED: Lidocaine 1% PF 5 ML VIAL ONE (13:17)
[2018-01-24] MEDS ORDERED: Ondansetron PF 4 MG/2 ML Vial ONE (13:17)
--- NOTE | 2018-01-25 10:00 | DIS ---
DATE OF ADMISSION: 01/22/2018 DATE OF DISCHARGE: 01/24/2018 DISCHARGE DISPOSITION: Home. FOLLOWUP: 1. Follow up with primary care physician, Dr. Butts in 1 week. 2. Follow up with General Surgery, Dr. Mckeon in 2 weeks. ALLERGIES: No known drug allergies. DISCHARGE MEDICATIONS: As same as admission medication with Tylenol No. 3 as needed for pain. BRIEF HOSPITAL COURSE: The patient is a 52-year-old male with hypertension and obesity who presented to the hospital with chest/epigastric pain. His troponins were negative. However, his lipase was g reater than 16,000 with total bilirubin 4.6, AST 257, ALT 237 with alkaline phosphatase of 101 on adm ission. Please refer to the history and physical for further details. The patient was admitted to the hospital with a diagnosis of acute pancreatitis. Right upper quadran t ultrasound showed findings consistent with cholelithiasis. He was evaluated by General Surgery, Dr Abhishek Mckeon, as well as Gastroenterology, Dr. Roque. An MRCP was obtained that showed cholelithiasis w ith pericholecystic fluid/early cholecystitis. He underwent laparoscopic cholecystectomy by Dr. Rodriguez ent on 01/24/2018. His abdominal pain has significantly improved. His LFTs on the day of discharge shows total bilirubin 1.7 with AST 77, ALT 143 with lipase of 468. Repeat liver function tests and l ipase after 1 week is recommended. Primary care physician advised to follow. He has been cleared by consultants for discharge. FINAL DIAGNOSES: 1. Acute gallstone pancreatitis. 2. Cholelithiasis with early cholecystitis, status post laparoscopic cholecystectomy. 3. Hypertension. 4. Abnormal liver function tests secondary to acute gallstone pancreatitis. 5. Obesity with a BMI of 37. 6. Tobacco dependence. 7. Hypertension. 8. Degenerative joint disease. Plan of care was discussed with the patient in detail. He stated understanding.
--- NOTE | 2018-01-26 22:25 | EKG ---
Test Reason : CHEST PAIN Blood Pressure : / mmHG Vent. Rate : 052 BPM Atrial Rate : 052 BPM P-R Int : 190 ms QRS Dur : 086 ms QT Int : 426 ms P-R-T Axes : 029 -04 014 degrees QTc Int : 396 ms Sinus bradycardia Otherwise normal ECG Confirmed by THAD WILEY (2) on 01/26/2018 10:24:28 PM Referred By: Confirmed By:THAD WILEY
== END 2018-01-24 13:28 | disposition home or self-care (01) | DRG 417 ==
LOC: ERS 11:47 → ONC 15:23
PROVIDERS: ADMIT Internal Medicine; ATTEND Internal Medicine
PROC: 0FT44ZZ Resection of Gallbladder, Percutaneous Endoscopic Approach (ICD-10-PCS; principal; 2018-01-24)
PROC: BF10YZZ Fluoroscopy of Bile Ducts using Other Contrast (ICD-10-PCS; 2018-01-24)
DX: K80.10 Calculus of gallbladder with chronic cholecystitis without obstruction (principal); K85.10 Biliary acute pancreatitis without necrosis or infection; I10 Essential (primary) hypertension; E66.9 Obesity, unspecified; Z68.37 Body mass index [BMI] 37.0-37.9, adult; F17.290 Nicotine dependence, other tobacco product, uncomplicated; Z96.642 Presence of left artificial hip joint; Z98.84 Bariatric surgery status; Z79.899 Other long term (current) drug therapy
CPT/HCPCS: 36415; 47532; 71045; 74181; 76705; 80048; 80053; 80061; 80076; 82550; 82553; 83690; 83735; 84100; 84484; 85025; 88304; 93005; 96374; J0131; J0360; J1100; J1610; J1650; J1885; J2001; J2250; J2270; J2405; J2704; J3010; Q9961; S0028

== ENCOUNTER 2018-01-31 21:47 | Emergency (ER) | payer OTHER ==
[~2018-01-31 21:47] MED LIST: ISOVUE-370 76%-LOCM 1 ML ONE
[2018-01-31 22:07] LABS: #Eosinphils 0.2 thou/uL (0.0-0.7); #Lymphocytes 1.6 thou/uL (1.20-3.40); #Monocytes 0.8 thou/uL (0.11-0.59); #Neutrophils 6.5 thou/uL (1.40-6.50); %Basophils 0.2 % (0.0-1.0); %Eosinophils 1.8 % (0.0-10.0); %Lymphocytes 17.8 % (21.0-51.0); %Monocytes 8.3 % (0.0-10.0); %Neutrophils 71.9 % (42.0-75.0); Hemoglobin 14.9 g/dL (14.0-18.0); Mean Corpuscular Hemoglobin 31.9 pg (27.0-31.0); Mean Corpuscular Volume 93.8 fL (78.0-98.0); Mean Platelet Volume 7.9 fL (7.4-10.4); Platelet Count 310 thou/uL (130-400); Red Blood Cell (RBC) Count 4.69 mill/uL (4.70-6.10)
--- NOTE | 2018-01-31 22:28 | RAD ---
SINGLE VIEW OF THE CHEST: 01/31/18 COMPARISON: 01/22/18 HISTORY: Chest pain that began last night with radiation to the right shoulder. FINDINGS: Single view of the chest shows a normal sized cardiomediastinal silhouette. There is no evidence of c onsolidation, mass, or pleural effusion. The bones are unremarkable. IMPRESSION: No evidence of acute cardiopulmonary disease. POS: [facility]
[2018-01-31 22:29] LABS: ALT (SGPT) 34 U/L (8-55); AST (SGOT) 26 U/L (5-34); Albumin 3.9 g/dL (3.5-5.0); Alkaline Phosphatase 85 U/L (40-150); Anion Gap 12 mmol/L (10-20); BUN (Urea Nitrogen) 19 mg/dL (8.4-25.7); Bilirubin, Total 0.5 mg/dL (0.2-1.2); CK (CPK) 101 U/L (30-200); Calc. Creatinine Clearance 0 mL/min (70-130); Calcium 9.4 mg/dL (7.8-10.44); Carbon Dioxide 28 mmol/L (22-29); Chloride 106 mmol/L (98-107); Estimated GFR-MDRD Greater than 90; Globulin 3.6 g/dL (2.4-3.5); Glucose 116 mg/dL (70-105); Potassium 4.2 mmol/L (3.5-5.1); Protein, Total 7.5 g/dL (6.0-8.3); Sodium 142 mmol/L (136-145)
[2018-01-31 22:34] LABS: CKMB 1.9 ng/mL (0-6.6); Troponin I Less than 0.010 ng/mL (< 0.028)
--- NOTE | 2018-01-31 23:47 | CT ---
CTA OF THE CHEST WITH CONTRAST 01/31/18 COMPARISON: None. HISTORY: Chest pain that is intermittent and on the left side. No shortness of breath. TECHNIQUE: Multiple contiguous axial images were obtained in a CTA of the chest with contrast per pulmonary embo lism protocol. 3D oblique MIP reformats and direct coronal reformats were performed. FINDINGS: The pulmonary arteries are well opacified without filling defects to suggest pulmonary emboli. No foc al cardiac abnormality is seen. No hilar or mediastinal lymphadenopathy are present. No pneumothorax or pleural effusion are seen. No suspicious pulmonary nodules are present. No infiltr ates are seen the lungs. Degenerative changes are seen in the spine. The chest wall soft tissues and visualized subdiaphragmat ic structures are unremarkable. The patient is status post cholecystectomy. IMPRESSION: No evidence of pulmonary thromboembolism. POS: ESTELA
[2018-02-01 01:08] LABS: Troponin I Less than 0.010 ng/mL (< 0.028)
== END 2018-02-01 01:41 | disposition home or self-care (01) ==
LOC: ERS 21:47
DX: R07.89 Other chest pain (principal); I10 Essential (primary) hypertension; Z79.899 Other long term (current) drug therapy
CPT/HCPCS: 36415; 71045; 71275; 80053; 82553; 83880; 84484; 85025; 93005

== ENCOUNTER 2020-03-27 19:30 | Outpatient (CLI) | payer OTHER | END 2020-03-27 19:31 | disposition home or self-care (01) | LOC: SLEEPLAB 19:30 | PROVIDERS: ATTEND Family Medicine | DX: G47.33 Obstructive sleep apnea (adult) (pediatric) (principal); R53.82 Chronic fatigue, unspecified; R06.83 Snoring; G47.00 Insomnia, unspecified; G47.10 Hypersomnia, unspecified; I10 Essential (primary) hypertension | CPT/HCPCS: 95811 ==

== ENCOUNTER 2020-04-24 19:30 | Outpatient (CLI) | payer OTHER | END 2020-04-24 19:31 | disposition home or self-care (01) | LOC: SLEEPLAB 19:30 | PROVIDERS: ATTEND Family Medicine | DX: G47.33 Obstructive sleep apnea (adult) (pediatric) (principal); R53.83 Other fatigue; R06.83 Snoring; G47.61 Periodic limb movement disorder | CPT/HCPCS: 95811 ==

== ENCOUNTER 2020-06-21 07:53 | Outpatient (CLI) | payer OTHER | END 2020-06-21 07:54 | disposition home or self-care (01) | LOC: TBSIIMAG 07:53 | PROVIDERS: ATTEND Orthopaedic Surgery | DX: M48.061 Spinal stenosis, lumbar region without neurogenic claudication (principal); M47.816 Spondylosis without myelopathy or radiculopathy, lumbar region; M51.36 Other intervertebral disc degeneration, lumbar region | CPT/HCPCS: 72148 ==

== ENCOUNTER 2024-02-17 18:35 | Emergency (ER) | payer BC | END 2024-02-17 20:36 | disposition left against medical advice (07) | LOC: ERS 18:35 | DX: Z53.21 Procedure and treatment not carried out due to patient leaving prior to being seen by health care provider (principal) ==